=== PATIENT | male | born 1965 | race Caucasian/White ===

== ENCOUNTER → 2019-03-23 11:50 | Outpatient (CLI) | payer OTHER, SELFPAY ==
--- NOTE | 2019-03-23 | DI.RAD.S_ITS ---
PROCEDURE: XR LUMBAR SPINE MIN 4V INDICATIONS: SCIATICA TECHNIQUE: 5 views of the lumbar spine were acquired. COMPARISON: None. FINDINGS: Bones: No fracture or focal osseous destruction. Multilevel degenerative endplate sclerosis and spurring. Diffuse facet arthropathy. Straightening of the normal lordotic curvature. Trace retrolisthesis of L4 on L5. Mild diffuse disc space narrowing. Mild bilateral hip joint degeneration. Soft tissues: Overlying bowel gas pattern is normal. No suspicious soft tissue calcifications. Oblique images: No pars defects. IMPRESSION: Mild lumbar spondylosis and facet arthropathy. Trace retrolisthesis of L4 on L5. Dictated by: Randy Robert M.D. on 03/23/2019 at 15:05 Approved by: Randy Robert M.D. on 03/23/2019 at 15:13
== END ==
PROVIDERS: Visit Provider Chiropractor
DX: M54.30 Sciatica, unspecified side (principal); M47.816 Spondylosis without myelopathy or radiculopathy, lumbar region; M16.0 Bilateral primary osteoarthritis of hip
CPT/HCPCS: 72110

== ENCOUNTER 2019-06-27 19:22 | Emergency (ER) | payer SELFPAY ==
[2019-06-27 19:30] VITALS: BP 122/77; PULSE 88; RESP 18; TEMP 37.1; O2SAT 100; BMI 20.5
--- NOTE | 2019-06-27 20:42 | ED.SKABFB ---
HPI - Skin/Abscess/Foreign Bdy General Chief complaint: Skin/Abscess/Foreign Body Stated complaint: RASH ON BODY ON FIRE Time Seen by Provider: 06/27/19 20:26 Source: patient Mode of arrival: Ambulatory Limitations: no limitations History of Present Illness HPI narrative: Patient is a 53-year-old male here for evaluation of rash of his right arm, behind his right knee and on the calf muscle of his left leg. He states that these symptoms have been there for at least the past month if not longer. It started behind his right knee and then moved to his left calf and then to his right upper arm. He has tried khrk-tsz-oqprcsv steroid creams without any improvement potentially some worsening of the area behind his right knee. He has also tried tanj-ihk-ffwpjei antihistamines. Has also tried bwqg-eys-djpnwda anti-itch creams. He has also been using daily moisturizer creams without any improvement. He states that he feels like his symptoms have been worsening. No new exposures. No recent travel. No recent antibiotics. Related Data Previous Rx's Medication Instructions Recorded prednisone 20 mg PO DAILY #39 tab 06/27/19 Allergies Allergy/AdvReac Type Severity Reaction Status Date / Time No Known Drug Allergies Allergy Verified 06/27/19 19:30 Review of Systems Constitutional Constitutional: Denies fever(s) Cardiovascular Cardiovascular: Denies chest pain and Denies dyspnea Respiratory Respiratory: Denies dyspnea Musculoskeletal Musculoskeletal: Denies myalgias and Denies arthralgias Integumentary/Breasts Skin/Breast: Reports dry skin, Denies skin ulcer and Denies wounds Neurologic Neurologic: Denies behavioral changes Psychiatric Psychiatric: Denies behavioral changes Hematologic/Lymphatic Hematologic/Lymphatic: Denies easy bleeding and Denies easy bruising Patient History Medical History Healthy adult (Acute) Social History Smoking Status: Current every day smoker Smoking Status: Current every day smoker tobacco type: cigarettes alcohol intake frequency: a few times a month Substance Use Type: does not use Exam Initial Vital Signs Initial Vital Signs: Vital Signs Temperature 98.7 F 06/27/19 19:30 Pulse Rate 88 06/27/19 19:30 Respiratory Rate 18 06/27/19 19:30 Blood Pressure 122/77 06/27/19 19:30 Pulse Oximetry 100 06/27/19 19:30 Const General: cooperative, healthy appearing and comfortable Limitations: mental status not altered HENUT Head: normal to inspection and normocephalic Resp Effort & Inspection: normal respiratory effort Skin Other: Has dry skin without erythema on the dorsum of the right arm and also on the lateral aspect of the right upper arm.. Snow drainage from the area. No blisters, no vesicles. Patient with similar symptoms to the posterior aspect of the left calf and also behind the right knee Neuro General: alert and awake Cognition: normal cognition Speech: speech normal Course Orders Ordered: Discontinued Medications Prednisone (Deltasone) 40 mg PO NOW ONE Stop: 06/27/19 20:43 Prednisone (Deltasone) 60 mg PO NOW ONE Stop: 06/27/19 20:45 Last Admin: 06/27/19 20:50 Dose: 60 mg Documented by: ANAMIKA Vital Signs Vital signs: Vital Signs - 8 hr 06/27/19 19:30 Temperature 98.7 F Pulse Rate 88 Respiratory Rate 18 Blood Pressure 122/77 Pulse Oximetry 100 MDM - Skin/Abscess/Foreign Bdy MDM Narrative Medical decision making narrative: Unsure the exact etiology of his symptoms. The been going on for at least a month if not longer. He does state that he does have family members who have been diagnosed with psoriasis in the past. I feel that his symptoms are to extensive for topical steroid cream. Will start on an oral steroid. No indication for antibiotics. He was given a phone number they can contact to establish a primary provider in the area. Did inform him that if his symptoms do not improve with the steroids that would not be unreasonable for him to get in to see Dermatology. He expressed understanding and agreement. Discharge Plan Departure Patient Disposition: Home Clinical Impression: Rash Discharge Date/Time: 06/27/19 20:56 Instructions: DI for Rash Activity Restrictions/Additional Instructions: Take the steroids as directed. Continue with the moisturizer cream like we discussed. Recommend you contact the health human resources talent manager at [phone]. Return to the emergency department for any new or worsening symptoms Prescriptions: New prednisone 20 mg tablet 20 mg PO DAILY Qty: 39 RF: 0
[2019-06-27] MEDS: predniSONE 20 MG TABLET 60 MG PO (20:50)
== END 2019-06-27 20:56 | disposition home or self-care (01) ==
PROVIDERS: Emergency Provider Emergency Medicine
DX: R21 Rash and other nonspecific skin eruption (principal)
CPT/HCPCS: 99283